=== PATIENT | male | born 1960 | race Caucasian/White ===

== ENCOUNTER 2019-03-30 18:21 | Emergency (ER) | payer OTHER ==
[~2019-03-30] VITALS: Ht 182.9 cm; Wt 93.4 kg
[2019-03-30 18:28] VITALS: Ht 182.9 cm; Wt 93.4 kg
[2019-03-30 19:13] VITALS: BP 126/73
== END 2019-03-30 19:13 | disposition home or self-care (01) ==
LOC: ED 18:21
DX: J11.1 Influenza due to unidentified influenza virus with other respiratory manifestations (principal); Z88.0 Allergy status to penicillin; Z88.1 Allergy status to other antibiotic agents